=== PATIENT | male | born 1985 | race Hispanic/Latino ===

== ENCOUNTER 2021-09-04 12:15 | Inpatient (IN) | payer SELFPAY ==
[2021-09-04] MEDS ORDERED: Boostrix 0.5 ML (Tdap) VIAL ONE (12:21)
[2021-09-04] MEDS ORDERED: CEFAZOLIN 2 GM in Sodium Chloride 0.9% 100 ML IVPB SCH (12:30)
[2021-09-04] MEDS ORDERED: Morphine 4 MG/ML VIAL ONE (13:15)
[2021-09-04] MEDS ORDERED: Morphine 4 MG/ML VIAL SLOW IVP PRN ×2 (14:10→22:35)
[2021-09-04] MEDS ORDERED: Dextrose 5% in Water 1,000 ML IV PRN (14:10)
[2021-09-04] MEDS ORDERED: Ondansetron ODT 4 MG TAB PO PRN (14:10)
[2021-09-04] MEDS ORDERED: hydrALAZINE 20 MG/ML VIAL SLOW IVP PRN (14:10)
[2021-09-04] MEDS ORDERED: Morphine 2 MG/ML VIAL SLOW IVP PRN (14:10)
[2021-09-04] MEDS ORDERED: Dextrose 50% Abboject 50 ML SYRINGE SLOW IVP PRN (14:10)
[2021-09-04] MEDS ORDERED: Ondansetron PF 4 MG/2 ML Vial IVP PRN (14:10)
[2021-09-04] MEDS ORDERED: Cyclobenzaprine 10 MG TAB PO PRN (14:12)
[2021-09-04] MEDS ORDERED: Sodium Chloride 0.9% 1,000 ML IV SCH (14:15)
[2021-09-04 14:29] LABS: #Basophils 0.1 thou/uL (0.0-0.2); #Eosinphils 0.1 thou/uL (0.0-0.7); #Lymphocytes 1.9 thou/uL (1.20-3.40); #Monocytes 0.6 thou/uL (0.11-0.59); #Neutrophils 4.5 thou/uL (1.40-6.50); %Basophils 0.9 % (0.0-1.0); %Eosinophils 1.5 % (0.0-10.0); %Neutrophils 62.5 % (42.0-75.0); Hemoglobin 12.7 g/dL (14.0-18.0); Mean Corpuscular HGB CONC 33.4 g/dL (32.0-36.0); Mean Corpuscular Hemoglobin 32.7 pg (27.0-31.0); Mean Corpuscular Volume 97.9 fL (78.0-98.0); Mean Platelet Volume 8.8 fL (7.4-10.4); Platelet Count 211 thou/uL (130-400); RBC Distribution Width 11.6 % (11.5-14.5); Red Blood Cell (RBC) Count 3.89 mill/uL (4.70-6.10); White Blood Cell (WBC) Count 7.1 thou/uL (4.8-10.8)
[2021-09-04 14:32] LABS: SARS-CoV-2 NAA Rapid Test Not Detected (NotDetected)
[2021-09-04 14:50] LABS: ALT (SGPT) 13 U/L (8-55); AST (SGOT) 20 U/L (5-34); Alkaline Phosphatase 93 U/L (40-110); Anion Gap 14 mmol/L (10-20); BUN (Urea Nitrogen) 21 mg/dL (8.9-20.6); Bilirubin, Total 0.6 mg/dL (0.2-1.2); Calc. Creatinine Clearance 0 mL/min (70-130); Calcium 8.9 mg/dL (7.8-10.44); Carbon Dioxide 26 mmol/L (22-29); Chloride 103 mmol/L (98-107); Estimated GFR 120; Glucose 90 mg/dL (70-105); Potassium 3.6 mmol/L (3.5-5.1); Sodium 139 mmol/L (136-145)
[2021-09-04] MEDS ORDERED: fentaNYL Citrate/PF 100 MCG/2 ML SYRINGE ONE (15:26)
[2021-09-04] MEDS ORDERED: Dexmedetomidine 200 MCG/2 ML VIAL ONE (15:26)
[2021-09-04] MEDS ORDERED: PROPOFOL 200 MG/20 ML VIAL ONE (15:50)
[2021-09-04] MEDS ORDERED: Succinylcholine 200 MG/10 ml SYRINGE FS ONE (15:50)
[2021-09-04] MEDS ORDERED: Lidocaine 1% PF 5 ML VIAL ONE (15:50)
[2021-09-04] MEDS ORDERED: Ondansetron PF 4 MG/2 ML Vial ONE (15:50)
[2021-09-04] MEDS ORDERED: Meperidine HCl/PF 25 MG/ML VIAL ONE (17:38)
[2021-09-04] MEDS ORDERED: Ondansetron HCl/PF 4 MG/2 ML Vial IVP PRN (17:41)
[2021-09-04] MEDS ORDERED: Promethazine HCl 25 MG/ML VIAL IM PRN (17:41)
[2021-09-04] MEDS ORDERED: Promethazine HCl 25 MG/ML VIAL IVPB PRN (17:41)
[2021-09-04] MEDS ORDERED: Meperidine HCl/PF 25 MG/ML VIAL SLOW IVP PRN (17:41)
[2021-09-04] MEDS ORDERED: Fentanyl 100 MCG/2 ML VIAL ONE (17:48)
[2021-09-04] MEDS: Gabapentin 100 MG CAP PO SCH ×3 (19:27→23:03)
[2021-09-04] MEDS: traMADol HCl 50 MG TAB PO SCH ×2 (19:27→19:38)
[2021-09-04] MEDS: Acetaminophen 500 MG TAB PO SCH ×2 (19:37→19:38)
[2021-09-04] MEDS: Famotidine 20 MG TAB PO SCH (19:39)
[2021-09-04 19:47] VITALS: BMI 25.0
[2021-09-04] MEDS: CEFAZOLIN 2 GM in Sodium Chloride 0.9% 100 ML IVPB SCH (21:56)
[2021-09-05] MEDS: traMADol HCl 50 MG TAB PO SCH ×3 (02:21→14:08)
[2021-09-05] MEDS: Acetaminophen 500 MG TAB PO SCH ×3 (02:21→14:06)
[2021-09-05] MEDS: CEFAZOLIN 2 GM in Sodium Chloride 0.9% 100 ML IVPB SCH ×2 (05:38→14:11)
[2021-09-05] MEDS: Ibuprofen 600 MG TAB PO SCH ×2 (05:38→14:04)
[2021-09-05 06:03] LABS: #Eosinphils 0.1 thou/uL (0.0-0.7); #Lymphocytes 1.5 thou/uL (1.20-3.40); #Monocytes 1.3 thou/uL (0.11-0.59); #Neutrophils 8.2 thou/uL (1.40-6.50); %Basophils 0.3 % (0.0-1.0); %Eosinophils 0.5 % (0.0-10.0); %Lymphocytes 13.9 % (21.0-51.0); %Monocytes 11.3 % (0.0-10.0); Hemoglobin 11.1 g/dL (14.0-18.0); Mean Corpuscular HGB CONC 33.3 g/dL (32.0-36.0); Mean Corpuscular Hemoglobin 32.6 pg (27.0-31.0); Mean Corpuscular Volume 97.9 fL (78.0-98.0); Mean Platelet Volume 8.5 fL (7.4-10.4); Platelet Count 177 thou/uL (130-400); RBC Distribution Width 11.6 % (11.5-14.5); Red Blood Cell (RBC) Count 3.41 mill/uL (4.70-6.10); White Blood Cell (WBC) Count 11.1 thou/uL (4.8-10.8)
[2021-09-05 06:23] LABS: Phosphorus 2.7 mg/dL (2.3-4.7)
[2021-09-05 06:28] LABS: Anion Gap 11 mmol/L (10-20); BUN (Urea Nitrogen) 18 mg/dL (8.9-20.6); Calc. Creatinine Clearance 172 mL/min (70-130); Calcium 8.1 mg/dL (7.8-10.44); Carbon Dioxide 25 mmol/L (22-29); Chloride 103 mmol/L (98-107); Estimated GFR 123; Glucose 94 mg/dL (70-105); Magnesium 1.9 mg/dL (1.6-2.6); Potassium 3.7 mmol/L (3.5-5.1); Sodium 135 mmol/L (136-145)
[2021-09-05] MEDS: Gabapentin 100 MG CAP PO SCH ×2 (09:07→18:10)
[2021-09-05] MEDS: Famotidine 20 MG TAB PO SCH (09:13)
[2021-09-05] MEDS ORDERED: Iopamidol-370 76% 500 ML 1 ML ONE (11:06)
[2021-09-05 19:45] VITALS: BP 124/78; TEMP 97.6
== END 2021-09-05 19:25 | disposition home or self-care (01) | DRG 494 ==
LOC: ERS 12:15 → SDC 14:58 → SURG A 19:17
PROVIDERS: ADMIT Surgery; ATTEND Surgery
PROC: 0QSG04Z Reposition Right Tibia with Internal Fixation Device, Open Approach (ICD-10-PCS; principal; 2021-09-04)
PROC: 0QHG05Z Insertion of External Fixation Device into Right Tibia, Open Approach (ICD-10-PCS; 2021-09-04)
DX: S82.871B Displaced pilon fracture of right tibia, initial encounter for open fracture type I or II (principal); W11.XXXA Fall on and from ladder, initial encounter; Y99.0 Civilian activity done for income or pay; Z20.822 Contact with and (suspected) exposure to COVID-19
CPT/HCPCS: 36415; 76000; 80048; 80053; 83735; 84100; 85025; 90715; C1713; G0390; J0690; J2175; J2270; J2405; J2704; J3010; J3490; J7050; Q9967; U0002

== ENCOUNTER 2021-09-18 10:20 | Outpatient (CLI) | payer SELFPAY ==
[2021-09-18 12:41] LABS: Hemoglobin 12.9 g/dL (13.5-17.5); Mean Corpuscular HGB CONC 33.1 g/dL (32.0-36.0); Mean Corpuscular Hemoglobin 30.4 pg (27.0-33.0); Mean Platelet Volume 10.4 fl (7.4-10.4); Platelet Count 500 10x3/uL (150-450); RBC Distribution Width 11.9 % (11.5-14.5); Red Blood Cell (RBC) Count 4.24 10x6/uL (4.32-5.72); White Blood Cell (WBC) Count 9.4 10x3/uL (3.5-10.5)
== END 2021-09-18 10:21 | disposition home or self-care (01) ==
LOC: LABBT 10:20
PROVIDERS: ATTEND Orthopaedic Surgery
DX: Z01.812 Encounter for preprocedural laboratory examination (principal); S82.61XE Displaced fracture of lateral malleolus of right fibula, subsequent encounter for open fracture type I or II with routine healing; Z20.822 Contact with and (suspected) exposure to COVID-19
CPT/HCPCS: 85027; 87811

== ENCOUNTER 2021-09-23 10:57 | Observation (INO) | payer SELFPAY ==
[2021-09-23] MEDS ORDERED: Propofol 500 MG/50 ML VIAL ONE (12:41)
[2021-09-23] MEDS ORDERED: HYDROmorphone 2 MG/ML VIAL ONE (12:41)
[2021-09-23] MEDS ORDERED: Sodium Chloride 0.9% 100 ML ONE (12:52)
[2021-09-23] MEDS ORDERED: CEFAZOLIN 2 GM VIAL ONE (12:52)
[2021-09-23] MEDS ORDERED: Lidocaine 1% PF 5 ML VIAL ONE (13:05)
[2021-09-23] MEDS ORDERED: PROPOFOL 200 MG/20 ML VIAL ONE (13:05)
[2021-09-23] MEDS ORDERED: Ketorolac Tromethamine 30 MG/ML VIAL ONE (13:05)
[2021-09-23] MEDS ORDERED: Dexamethasone 20 MG/5 ML VIAL ONE (13:05)
[2021-09-23] MEDS ORDERED: Ondansetron PF 4 MG/2 ML Vial ONE (13:05)
[2021-09-23] MEDS ORDERED: Bupivacaine PF 0.5% 30 ML VIAL ONE (13:38)
[2021-09-23] MEDS ORDERED: Ondansetron PF 4 MG/2 ML Vial SLOW IVP PRN (15:35)
[2021-09-23] MEDS ORDERED: HYDROcodone/Acetaminophen 10/325 mg Tablet PO PRN (15:35)
[2021-09-23] MEDS ORDERED: Morphine 2 MG/ML VIAL SLOW IVP PRN (15:35)
[2021-09-23] MEDS ORDERED: Meperidine HCl/PF 25 MG/ML VIAL ONE (15:52)
[2021-09-23] MEDS ORDERED: HYDROmorphone 2 MG/ML VIAL SLOW IVP PRN (15:52)
[2021-09-23] MEDS ORDERED: Promethazine HCl 25 MG/ML VIAL IVPB PRN (15:52)
[2021-09-23] MEDS ORDERED: Meperidine HCl/PF 25 MG/ML VIAL SLOW IVP PRN (15:52)
[2021-09-23] MEDS ORDERED: Promethazine HCl 25 MG/ML VIAL IM PRN (15:52)
[2021-09-23] MEDS ORDERED: Ondansetron HCl/PF 4 MG/2 ML Vial IVP PRN (15:52)
[2021-09-23] MEDS ORDERED: Fentanyl 100 MCG/2 ML VIAL ONE (16:26)
[2021-09-23] MEDS: CEFAZOLIN 2 GM in Sodium Chloride 0.9% 100 ML IVPB SCH (21:00)
[2021-09-24 05:20] LABS: #Basophils 0.1 thou/uL (0.0-0.2); #Eosinphils 0.1 thou/uL (0.0-0.7); #Lymphocytes 2.1 thou/uL (1.20-3.40); #Monocytes 1.2 thou/uL (0.11-0.59); #Neutrophils 8.1 thou/uL (1.40-6.50); %Basophils 0.5 % (0.0-1.0); %Eosinophils 0.8 % (0.0-10.0); %Monocytes 10.2 % (0.0-10.0); %Neutrophils 70.6 % (42.0-75.0); Hemoglobin 10.7 g/dL (14.0-18.0); Mean Corpuscular HGB CONC 32.5 g/dL (32.0-36.0); Mean Corpuscular Hemoglobin 31.7 pg (27.0-31.0); Mean Corpuscular Volume 97.7 fL (78.0-98.0); Mean Platelet Volume 7.7 fL (7.4-10.4); Platelet Count 310 thou/uL (130-400); RBC Distribution Width 11.2 % (11.5-14.5); Red Blood Cell (RBC) Count 3.38 mill/uL (4.70-6.10); White Blood Cell (WBC) Count 11.5 thou/uL (4.8-10.8)
[2021-09-24] MEDS: HYDROcodone/Acetaminophen 10/325 mg Tablet PO PRN ×4 (05:31→15:28)
[2021-09-24] MEDS: CEFAZOLIN 2 GM in Sodium Chloride 0.9% 100 ML IVPB SCH ×2 (05:31→14:28)
[2021-09-24 10:24] VITALS: BMI 23.3
[2021-09-24 15:46] VITALS: BP 102/64; TEMP 98.1
== END 2021-09-24 16:42 | disposition home or self-care (01) ==
LOC: SDC 10:57 → SJJU 15:43
PROVIDERS: ADMIT Orthopaedic Surgery; ATTEND Orthopaedic Surgery
PROC: 0QSG04Z Reposition Right Tibia with Internal Fixation Device, Open Approach (ICD-10-PCS; principal; 2021-09-23)
DX: S82.871A Displaced pilon fracture of right tibia, initial encounter for closed fracture (principal); W11.XXXA Fall on and from ladder, initial encounter
CPT/HCPCS: 36415; 76000; 85025; 88307; 88311; 96365; C1713; C1889; G0378; J0690; J1100; J1170; J1885; J2175; J2405; J2704; J3010; J3490; S0020